=== PATIENT | male | born 1995 | race Hispanic/Latino ===

== ENCOUNTER 2018-08-29 23:24 | Emergency (ER) | payer OTHER | END 2018-08-30 00:40 | disposition home or self-care (01) | LOC: EDH 23:24 | DX: S93.491A Sprain of other ligament of right ankle, initial encounter (principal); M79.9 Soft tissue disorder, unspecified; X58.XXXA Exposure to other specified factors, initial encounter; Y93.89 Activity, other specified; Y92.89 Other specified places as the place of occurrence of the external cause; Y99.8 Other external cause status | CPT/HCPCS: 73610 ==